=== PATIENT | male | born 1995 | race Caucasian/White ===

== ENCOUNTER 2021-06-16 19:22 | Emergency (ER) | payer SELFPAY ==
[2021-06-16 19:56] VITALS: BP 141/77; PULSE 66; RESP 18; TEMP 98.3
--- NOTE | 2021-06-16 20:43 | ED ---
General Adult HPI - General Chief complaint: Recheck/Abnormal Lab/Rx Stated complaint: COVID Test Time Seen by Provider: 06/16/21 20:10 Source: patient Mode of arrival: ambulatory Limitations: no limitations - History of Present Illness Initial comments: Dictation was produced using [employer] dictation software. please excuse any grammatical, word or spelling errors. Chief Complaint: Patient is a 63-year-old male presents emergency department for rotavirus test to gain entry into [facility]. History of Present Illness: Patient is a 63-year-old male has past medical history of hypertension. He is here in emergency department requesting a test for coronavirus in order to gain entry into [facility]. Patient has no symptoms. Patient has no complaints. Patient was with his father and they were visiting their vacation property in the [facility]. The ROS documented in this emergency department record has been reviewed and confirmed by me. Those systems with pertinent positive or negative responses have been documented in the HPI. All other systems are other negative and/or noncontributory. PHYSICAL EXAM: General Impression: Alert and oriented x3, not in acute distress HEENT: Normocephalic atraumatic, extra-ocular movements intact, pupils equal and reactive to light bilaterally, mucous membranes moist. Cardiovascular: Heart regular rate and rhythm Chest: Able to complete full sentences, no retractions, no tachypnea Motor: no focal deficits noted Neurological: CN II-XII grossly intact, no focal motor or sensory deficits noted Skin: Intact with no visualized rashes Psych: Normal affect and mood ED course: 63-year-old male presents to the emergency department requesting coronavirus testing gain entry into [facility]. On arrival are within acceptable limits. rapid coronavirus test negative. - Related Data Allergies Allergy/AdvReac Type Severity Reaction Status Date / Time No Known Allergies Allergy Verified 06/16/21 19:55 Review of Systems ROS Statement: Those systems with pertinent positive or pertinent negative responses have been documented in the HPI. ROS Other: All systems not noted in ROS Statement are negative. Past Medical History Past Medical History: No Reported History History of Any Multi-Drug Resistant Organisms: None Reported Past Surgical History: No Surgical Hx Reported Past Psychological History: No Psychological Hx Reported Smoking Status: Never smoker Past Alcohol Use History: Occasional Past Drug Use History: Marijuana General Exam Limitations: no limitations Course Vital Signs 06/16/21 19:53 Temperature 98.3 F Pulse Rate 66 Respiratory 18 Rate Blood Pressure 141/77 O2 Sat by Pulse 100 Oximetry Medical Decision Making - Lab Data Lab Results 06/16/21 Range/Units 19:57 Coronavirus (PCR) Not Detected (Not Detectd) Disposition Clinical Impression: Lab test negative for COVID-19 virus Disposition: HOME SELF-CARE Condition: Good Is patient prescribed a controlled substance at d/c from ED?: No Referrals: None,Stated [Primary Care Provider] - 1-2 days
== END 2021-06-16 21:16 | disposition home or self-care (01) ==
LOC: EC 19:22
DX: Z20.822 Contact with and (suspected) exposure to COVID-19 (principal); I10 Essential (primary) hypertension; F12.90 Cannabis use, unspecified, uncomplicated
CPT/HCPCS: 87635; 99282